=== PATIENT | female | born 1970 | race Caucasian/White ===

== ENCOUNTER 2016-12-24 09:40 | Emergency (ER) | payer OTHER ==
[2016-12-24] MEDS ORDERED: ASPIRIN 81 MG CHEWABLE TAB PO ONE (09:53)
[2016-12-24] MEDS ORDERED: NS 1,000 ML IV ONE (09:53)
--- NOTE | 2016-12-24 09:57 | CPEKG ---
Heart Rate: 72 RR Interval: 833 P-R Interval: 156 QRSD Interval: 80 QT Interval: 396 QTC Interval: 434 P [place]: -20 QRS Paden: 66 T Wave Paden: 46 EKG Severity - NORMAL ECG - EKG Impression: SINUS RHYTHM Electronically Signed By: Karla Bermudez 24-Dec-2016 10:03:54
--- NOTE | 2016-12-24 09:58 | EDPHY ---
H & P Stated Complaint: syncope and CP during work out class, better now Time Seen by Provider: 12/24/16 09:45 HPI/ROS: CHIEF COMPLAINT: Syncope and chest pain History by patient HISTORY OF PRESENT ILLNESS: 46-year-old woman brought in by friends after syncopal episode at the end of his [employer] class. Patient states she was exercising for half an hour or more and felt fine and then after the class sat down because she thought she might faint. She complained of her friends of strong chest pain which she describes as stabbing in nature, and they notice she looked pale and her hands felt cold and she got diaphoretic. Patient denies any heart racing or palpitations. She then passed out while sitting in the chair. She immediately woke up. She remembers the episode. She still had some mild chest pain but this has subsequently resolved. There was no associated shortness of breath. She has never had this happen before. She has done this exercise class many times before. She has a history of asthma but did not use her inhalers today. She has no history of hypertension or diabetes. She is premenopausal. There is no family history of heart disease. She has never smoked.. REVIEW OF SYSTEMS: As in HPI, and all other systems reviewed and are negative Source: Patient, Other - Personal History LMP (Females 10-55): 8-14 Days Ago Current Tetanus/Diphtheria Vaccine: No Current Tetanus Diphtheria and Acellular Pertussis (TDAP): No - Medical/Surgical History Hx Asthma: No Hx Chronic Respiratory Disease: No Hx Diabetes: No Hx Cardiac Disease: No Hx Renal Disease: No Hx Cirrhosis: No Hx Alcoholism: No Hx HIV/AIDS: No Hx Splenectomy or Spleen Trauma: No Other PMH: none reported - Family History Significant Family History: No pertinent family hx - Social History Smoking Status: Never smoked - Physical Exam Exam: General Appearance: Alert, well-appearing. Eyes: Pupils equal and round no pallor or injection. ENT, Mouth: Mucous membranes moist. Respiratory: Normal, effort, There are no retractions, lungs are clear to auscultation. Cardiovascular: Regular rate and rhythm. S1, S2, no murmurs, gallops, rubs appreciated Gastrointestinal: Abdomen is soft and nontender, no masses, bowel sounds normal. Neurological: Awake, alert and oriented x 3, no pronator drift, normal gait, no pronator drift Skin: Warm and dry, no rashes. Musculoskeletal: Neck is supple nontender. Extremities are symmetrical, full range of motion. No edema, DP pulses 2+ and equal bilaterally Psychiatric: Patient has normal affect, there is no agitation. Constitutional: Initial Vital Signs Temperature (C) 36.9 C 12/24/16 09:47 Heart Rate 71 12/24/16 09:47 Respiratory Rate 20 12/24/16 09:47 Blood Pressure 105/77 12/24/16 09:47 O2 Sat (%) 98 12/24/16 09:47 O2 Delivery Mode Room Air Allergies/Adverse Reactions: No Known Allergies Allergy (Unverified 12/24/16 09:46) Home Medications: Medication Instructions Recorded NK [No Known Home Meds] 12/24/16 Medical Decision Making - Diagnostics EKG Interpretation: Normal sinus rhythm at a rate of 69 with normal axis, normal intervals and no ST segment abnormalities. No evidence of acute ischemia Imaging Results: Imaging Impressions Chest X-Ray 12/24/16 09:54 Impression: Normal. ED Course/Re-evaluation: 46-year-old woman presents after wrist witnessed syncopal episode after an exercise class. On arrival here patient is asymptomatic, neurologically intact with normal vital signs. An ECG shows normal sinus rhythm at a rate of 69 with normal axis, normal intervals and no ST segment abnormalities or evidence of acute ischemia or arrhythmia. Labs are unremarkable and troponin was negative x2. Patient was given a L of IV fluids and remained stable in a normal sinus rhythm on the classroom monitor in the ED. She is therefore discharged home with unclear cause of her syncope. I am recommending she follow up with primary care physician discussed the need for outpatient Holter monitoring. - Data Points Laboratory Results: Laboratory Results 12/24/16 10:00 12/24/16 10:00 12/24/16 12/24/16 12/24/16 13:30 10:00 10:00 WBC 7.49 10^3/uL 10^3/uL (3.80-9.50) RBC 4.71 10^6/uL 10^6/uL (4.18-5.33) Hgb 14.3 g/dL g/dL (12.6-16.3) Hct 41.6 % % (38.0-47.0) MCV 88.3 fL fL (81.5-99.8) MCH 30.4 pg pg (27.9-34.1) MCHC 34.4 g/dL g/dL (32.4-36.7) RDW 12.9 % % (11.5-15.2) Plt Count 234 10^3/uL 10^3/uL (150-400) MPV 10.0 fL fL (8.7-11.7) Neut % (Auto) 65.1 % % (39.3-74.2) Lymph % (Auto) 26.0 % % (15.0-45.0) [place] % (Auto) 5.6 % % (4.5-13.0) Eos % (Auto) 2.4 % % (0.6-7.6) Baso % (Auto) 0.5 % % (0.3-1.7) Nucleat RBC Rel Count 0.0 % % (0.0-0.2) Absolute Neuts (auto) 4.87 10^3/uL 10^3/uL (1.70-6.50) Absolute Lymphs (auto) 1.95 10^3/uL 10^3/uL (1.00-3.00) Absolute Monos (auto) 0.42 10^3/uL 10^3/uL (0.30-0.80) Absolute Eos (auto) 0.18 10^3/uL 10^3/uL (0.03-0.40) Absolute Basos (auto) 0.04 10^3/uL 10^3/uL (0.02-0.10) Absolute Nucleated RBC 0.00 10^3/uL 10^3/uL (0-0.01) Immature Gran % 0.4 % % (0.0-1.1) Immature Gran # 0.03 10^3/uL 10^3/uL (0.00-0.10) Sodium 141 mEq/L mEq/L (134-144) Potassium 4.1 mEq/L mEq/L (3.5-5.2) Chloride 104 mEq/L mEq/L (97-110) Carbon Dioxide 23 mEq/l mEq/l (22-31) Anion Gap 14 mEq/L mEq/L (8-16) BUN 11 mg/dL mg/dL (7-23) Creatinine 0.7 mg/dL mg/dL (0.6-1.0) Estimated GFR > 60 Glucose 92 mg/dL mg/dL (70-100) Calcium 9.1 mg/dL mg/dL (8.5-10.4) Magnesium 1.7 mg/dL mg/dL (1.6-2.3) Troponin I 0.012 ng/mL ng/mL < 0.012 ng/mL ng/mL (0-0.034) (0-0.034) Medications Given: Discontinued Medications Aspirin (Aspirin) 324 mg PO EDNOW ONE Stop: 12/24/16 09:54 Last Admin: 12/24/16 10:12 Dose: 324 mg Sodium Chloride (Ns) 1,000 mls @ 0 mls/hr IV ONCE ONE; Wide Open PRN Reason: Protocol Stop: 12/24/16 09:54 Last Admin: 12/24/16 10:12 Dose: 1,000 mls Departure - Departure Disposition: Home, Routine, Self-Care Clinical Impression: Syncope Qualifiers: Syncope type: unspecified Qualified Code(s): R55 - Syncope and collapse Condition: Good Instructions: Syncope (ED) Additional Instructions: You were seen by Dr. Karla Bermudez today. Please follow-up with your primary care physician to discuss the need for outpatient cardiac monitoring. Return for any worsening or new concerns.
[2016-12-24 10:06] LABS: % IMMATURE GRANULYOCYTES 0.4 % (0.0-1.1); ABSOLUTE IMMATURE GRANULOCYTES 0.03 10^3/uL (0.00-0.10); ADD DIFF? NO; ADD MORPH? NO; ADD SCAN? NO; ATYPICAL LYMPHOCYTE FLAG 10 (0-99); FRAGMENT RBC FLAG 0 (0-99); HEMATOCRIT 41.6 % (38.0-47.0); HEMOGLOBIN 14.3 g/dL (12.6-16.3); LEFT SHIFT FLG 0 (0-99); LIPEMIA HEMOLYSIS FLAG 90 (0-99); MEAN CELL HEMOGLOBIN 30.4 pg (27.9-34.1); MEAN CELL HEMOGLOBIN CONCENTR. 34.4 g/dL (32.4-36.7); MEAN CELL VOLUME 88.3 fL (81.5-99.8); PLATELET CLUMPS FLAG 0 (0-99); PLATELET COUNT 234 10^3/uL (150-400); RED BLOOD CELL COUNT 4.71 10^6/uL (4.18-5.33); RED CELL DISTRIBUTION WIDTH 12.9 % (11.5-15.2)
[2016-12-24 10:24] LABS: ANION GAP 14 mEq/L (8-16); CALCIUM 9.1 mg/dL (8.5-10.4); CARBON DIOXIDE 23 mEq/l (22-31); CHLORIDE 104 mEq/L (97-110); CREATININE 0.7 mg/dL (0.6-1.0); GLOMERULAR FILTRATION RATE > 60; GLUCOSE 92 mg/dL (70-100); MAGNESIUM 1.7 mg/dL (1.6-2.3); POTASSIUM 4.1 mEq/L (3.5-5.2); SODIUM 141 mEq/L (134-144)
[2016-12-24 10:33] LABS: TROPONIN I < 0.012 ng/mL (0-0.034)
[2016-12-24 12:06] VITALS: RESP 18
[2016-12-24 13:16] VITALS: O2SAT 98
[2016-12-24 14:15] VITALS: BP 106/72; PULSE 72; TEMP 98.2
--- NOTE | 2016-12-26 08:19 | CPEKG ---
Heart Rate: 69 RR Interval: 870 P-R Interval: 160 QRSD Interval: 82 QT Interval: 404 QTC Interval: 433 P [place]: -11 QRS [place]: 67 T Wave [place]: 44 EKG Severity - NORMAL ECG - EKG Impression: SINUS RHYTHM EKG Impression: No significant change from EKG done 4 minutes earlier. Electronically Signed By: Ramy Roberts 27-Dec-2016 09:59:42
== END 2016-12-24 14:16 | disposition home or self-care (01) ==
LOC: CED 09:40
DX: R55 Syncope and collapse (principal); E86.9 Volume depletion, unspecified
CPT/HCPCS: 71020-PO; 80048-PO; 83735-PO; 84484-PO; 85025-PO